=== PATIENT | male | born 1955 | race Caucasian/White ===

== ENCOUNTER 2021-09-04 15:59 | Outpatient (CLI) | payer MEDICARE ==
--- NOTE | 2021-09-04 16:46 | XRAY Report ---
PROCEDURE: Knee 3 View RT INDICATIONS: KNEE PAIN, RIGHT, CHRONIC TECHNIQUE: 3 views of the right knee(s) were acquired. COMPARISON: None. FINDINGS: BONES/JOINT: No acute, displaced fracture or dislocation. Moderate joint space loss of the medial com partment. Tricompartment osteophytosis, most prominent about the patellofemoral compartment. Small ortiz prapatellar joint effusion. SOFT TISSUES: No significant abnormality. IMPRESSION: 1.No acute osseous abnormality. Reviewed by: Tom Uriarte MD on 09/04/2021 4:44 PM PST Approved by: Tom Uriarte MD on 09/04/2021 4:44 PM PST Station ID: [id number]
== END 2021-09-04 23:59 | disposition home or self-care (01) ==
LOC: DI.N 15:59
PROVIDERS: ATTEND Physician Assistant
DX: M25.561 Pain in right knee (principal)

== ENCOUNTER 2023-01-22 15:24 | Outpatient (CLI) | payer MEDICARE ==
--- NOTE | 2023-01-22 15:59 | XRAY Report ---
PROCEDURE: Shoulder 3 View LT INDICATIONS: Pain, limited range of motion. TECHNIQUE: 3 views of the shoulder were acquired. COMPARISON: None. FINDINGS: Bones: No fractures or dislocations. No suspicious bony lesions. Visualized ribs appear intact. Acromioclavicular joint space narrowing with associated osteophytosis. Soft tissues: No suspicious soft tissue calcifications. Metallic foreign body projecting over the le ft chest wall. IMPRESSION: Moderate acromioclavicular osteoarthritis. Reviewed by: Jonathan West on 01/22/2023 3:58 PM PDT Approved by: Jonathan West on 01/22/2023 3:58 PM PDT Station ID: [id number]
--- NOTE | 2023-01-22 16:39 | XRAY Report ---
PROCEDURE: Lumbar Spine 2 View INDICATIONS: LEFT SHOULDER PAIN,DORSALGIA TECHNIQUE: 2 views of the lumbar spine were acquired. COMPARISON: None. FINDINGS: Bones: 5 [id number] vertebrae are present. There is loss of normal lumbar lordosis. Moderate l eftward curvature of the mid/lower lumbar spine. Multilevel disc space narrowing and endplate osteoph yte formation as well as facet hypertrophy. 4 mm of retrolisthesis of L3 on L4. No vertebral body com pression fractures. No suspicious bony lesions. Soft tissues: Overlying bowel gas pattern is normal. No suspicious soft tissue calcifications. IMPRESSION: 1. Multilevel degenerative disc and facet disease. 2. No acute fracture. No osseous lesion. If symptoms and/or clinical suspicion for pathology continue , further assessment with repeat plain films, or advanced imaging (e.g., CT, MRI, or bone scan) is re commended for further assessment. Reviewed by: Jaime Franco MD on 01/22/2023 4:38 PM PDT Approved by: Jaime Franco MD on 01/22/2023 4:38 PM PDT Station ID: [id number]
== END 2023-01-22 15:25 | disposition home or self-care (01) ==
LOC: DI 15:24
PROVIDERS: ATTEND Family Medicine
DX: M19.012 Primary osteoarthritis, left shoulder (principal); M47.816 Spondylosis without myelopathy or radiculopathy, lumbar region; M51.36 Other intervertebral disc degeneration, lumbar region

== ENCOUNTER 2023-12-18 14:33 | Outpatient (CLI) | payer MEDICARE | END 2023-12-18 23:59 | disposition EMS.NT | LOC: EMS 14:33 | DX: R42 Dizziness and giddiness (principal); Z91.81 History of falling ==

== ENCOUNTER 2023-12-18 15:28 | Outpatient (CLI) | payer MEDICARE | END 2023-12-18 23:59 | disposition critical access hospital (66) | LOC: EMS 15:28 | PROVIDERS: ATTEND Emergency Medicine | DX: R42 Dizziness and giddiness (principal); Z91.81 History of falling | CPT/HCPCS: A0425; A0429 ==